=== PATIENT | female | born 1950 | race Caucasian/White ===

== ENCOUNTER 2020-07-27 08:00 | Outpatient (RCR) | payer MEDICARE, OTHER, SELFPAY ==
[2020-07-27] MEDS: COVID-19 VACC, MRNA(PFIZER)/PF 30 MCG/0.3 ML SYRINGE IM (18:24)
[2020-08-17] MEDS: COVID-19 VACC, MRNA(PFIZER)/PF 30 MCG/0.3 ML SYRINGE IM (18:04)
== END 2020-10-26 23:59 ==
LOC: IMMUN 08:00
PROVIDERS: PCP Family Medicine; Referring Provider Family Medicine; Visit Provider Family Medicine
DX: Z23 Encounter for immunization (principal)
CPT/HCPCS: 0001A; 0002A; 91300